=== PATIENT | male | born 1965 | race Caucasian/White ===

== ENCOUNTER 2017-05-04 03:13 | Inpatient (IN) | payer MEDICAID, OTHER ==
[2017-05-04] MEDS ORDERED: LORazepam 2 MG/ML MDV IVPUSH ONE (03:22)
[2017-05-04] MEDS ORDERED: Lactated Ringers 1,000 ML IV ONE (03:30)
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
[2017-05-04] MEDS ORDERED: OLANZapine 10 MG Vial IM ONE (05:54)
[2017-05-04] MEDS ORDERED: Pantoprazole 80 MG in Sodium Chloride 0.9% 100 ML IV ONE (05:56)
[2017-05-04] MEDS ORDERED: Pantoprazole 40 MG Vial ONE (06:09)
[2017-05-04] MEDS ORDERED: Sodium Chloride 0.9% 100 ML ONE (06:10)
[2017-05-04] MEDS ORDERED: Diphtheria,Pertussis(Acell),Tetanus Vaccine 0.5 ML SDV IM ONE (06:21)
[2017-05-04] MEDS ORDERED: Iopamidol 755 Mg/ML 100 ML Bottle IV ONE (07:21)
[2017-05-04] MEDS: Albuterol/Ipratropium 3.0-0.5 MG/3 ML Neb Soln NEB SCH ×4 (07:29→21:00)
[2017-05-04] MEDS: Sodium Chloride 0.9% 1,000 ML IV SCH ×3 (10:31→23:59)
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
[2017-05-05] MEDS: Ibuprofen 600 MG Tab PO PRN ×2 (05:33→16:23)
[2017-05-05] MEDS: Acetaminophen 500 MG Tab PO PRN ×2 (05:36→16:23)
[2017-05-05] MEDS: Sodium Chloride 0.9% 1,000 ML IV SCH ×3 (06:32→20:01)
[2017-05-05] MEDS: Albuterol/Ipratropium 3.0-0.5 MG/3 ML Neb Soln NEB SCH (09:22)
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
[2017-05-05] MEDS: Ketorolac 30 MG/ML SDV IVPUSH PRN (17:12)
[2017-05-06] MEDS: Sodium Chloride 0.9% 1,000 ML IV SCH ×2 (02:46→09:17)
[2017-05-06] MEDS: Ketorolac 30 MG/ML SDV IVPUSH PRN ×2 (02:48→10:33)
[2017-05-06] MEDS: Ibuprofen 600 MG Tab PO PRN (08:09)
[2017-05-06] MEDS: Acetaminophen 500 MG Tab PO PRN (08:10)
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
== END 2017-05-06 16:18 | disposition home or self-care (01) | DRG 914 ==
LOC: FB.ED 03:13 → FB.ICU 06:03 → FB.MS 05-05 11:17
PROVIDERS: ADMIT Emergency Medicine; ATTEND Family Medicine
DX: T14.90XA Injury, unspecified, initial encounter (principal); N17.9 Acute kidney failure, unspecified; V48.5XXA Car driver injured in noncollision transport accident in traffic accident, initial encounter; I95.9 Hypotension, unspecified; R00.0 Tachycardia, unspecified; F22 Delusional disorders; F12.10 Cannabis abuse, uncomplicated; F10.10 Alcohol abuse, uncomplicated; F11.10 Opioid abuse, uncomplicated; Y90.0 Blood alcohol level of less than 20 mg/100 ml; Z87.898 Personal history of other specified conditions; R10.9 Unspecified abdominal pain; M54.2 Cervicalgia; M54.9 Dorsalgia, unspecified; G89.29 Other chronic pain; Y92.410 Unspecified street and highway as the place of occurrence of the external cause
CPT/HCPCS: 36415; 70450; 71045; 71260; 72125; 72170; 74177; 80048; 80053; 80305; 81001; 85025; 85027; 86850; 86900; 86901; 90715; 94640; A9270-GY; C9113; G0480; J1885; J2060; J7030; J7040; J7120; J7620; S0166

== ENCOUNTER 2017-10-08 18:06 | Emergency (ER) | payer MEDICAID ==
[2017-10-08] MEDS ORDERED: Sodium Chloride 0.9% 10 ML Syringe FLUSH PRN (18:25)
[2017-10-08] MEDS ORDERED: Ondansetron 4 MG/2 ML SDV IVPUSH ONE (18:26)
[2017-10-08] MEDS ORDERED: HYDROmorphone 2 MG/ML SDV IVPUSH ONE (18:26)
[2017-10-08] MEDS ORDERED: Pantoprazole 40 MG Vial IVPUSH ONE (18:27)
[2017-10-08] MEDS ORDERED: Sodium Chloride 0.9% 1,000 ML IV SCH (18:30)
--- NOTE | 2017-10-08 18:33 | EDM.PDOC ---
ED HPI GENERAL MEDICAL PROBLEM - General Chief Complaint: Chest Pain Stated Complaint: SHORT OF BREATH Time Seen by Provider: 10/08/17 18:28 Source of Information: Reports: Patient History Limitations: Reports: No Limitations - History of Present Illness INITIAL COMMENTS - FREE TEXT/NARRATIVE: Developed left sided chest pain radiating to left arm 1 hour ago associated with tingling to left hand (these symptoms have resolved). No prior h/o CAD. Also complains of worsening low abdominal pain w/ N/V/D x 2 months. Was recently diagnosed with Hep C. Onset: Sudden Duration: Hour(s): (1) Location: Reports: Chest Quality: Reports: Dull Severity: Moderate Associated Symptoms: Reports: Shortness of Breath Treatments [employer]: Reports: Aspirin lower abdomen radiating to back and neto lower legs Pain Score (Numeric/FACES): 10 - Related Data Allergies Allergy/AdvReac Type Severity Reaction Status Date / Time No Known Allergies Allergy Verified 10/08/17 19:42 Home Meds: Home Meds Aspirin [Ecotrin] 325 mg PO DAILY 05/04/17 [History] Pantoprazole Sodium [Protonix] 40 mg PO DAILY #15 tab 10/08/17 [Rx] Past Medical History Cardiovascular History: Denies: CAD Gastrointestinal History: Reports: Hepatitis (c) Musculoskeletal History: Reports: Back Pain, Chronic, Osteoarthritis Other Psychiatric History: had been to alcohol rehab several times - Past Surgical History Other HEENT Surgeries/Procedures: unknown at this time Other Cardiovascular Surgeries/Procedures: unknown at this time Other Respiratory Surgeries/Procedures: much wheezing and diminished air audible throughout lungs Other GI Surgeries/Procedures: aubleible bowel activity Other Male Surgeries/Procedures: no void at this time Social & Family History - Family History Family Medical History: Unobtainable - Tobacco Use Smoking Status *Q: Current Every Day Smoker Tobacco Use Within Last Twelve Months: Cigarettes - Caffeine Use Caffeine Use: Reports: Coffee - Alcohol Use Alcohol Use History: Yes Alcohol Use Frequency: Socially - Recreational Drug Use Recreational Drug Use: No Drug Use in Last 12 Months: Yes Recreational Drug Type: Reports: Cocaine (3 months ago), Methamphetamine (3 months ago) ED ROS GENERAL - Review of Systems Review Of Systems: See Below Constitutional: Reports: No Symptoms HEENT: Reports: No Symptoms Respiratory: Reports: Shortness of Breath Cardiovascular: Reports: Chest Pain GI/Abdominal: Reports: Abdominal Pain, Diarrhea, Nausea, Vomiting : Reports: Other (urine color is green) Musculoskeletal: Reports: Back Pain Skin: Reports: No Symptoms Neurological: Reports: No Symptoms Psychiatric: Reports: No Symptoms Hematologic/Lymphatic: Reports: No Symptoms Immunologic: Reports: No Symptoms ED EXAM, GENERAL - Physical Exam Exam: See Below Exam Limited By: No Limitations General Appearance: Alert, WD/WN, No Apparent Distress Nose: Normal Inspection Throat/Mouth: Normal Inspection Head: Atraumatic, Normocephalic Neck: Normal Inspection, Supple Respiratory/Chest: No Respiratory Distress, Lungs Clear, Normal Breath Sounds, No Accessory Muscle Use Cardiovascular: Regular Rate, Rhythm, No Edema, No Gallop, No JVD, No Murmur, No Rub GI/Abdominal: Normal Bowel Sounds, Soft, No Distention, Tender (moderate lower) Back Exam: Full Range of Motion Extremities: Normal Inspection, Normal Range of Motion Neurological: Alert, Oriented, Normal Cognition, Normal Gait Psychiatric: Anxious Skin Exam: Warm, Dry, Intact EKG INTERPRETATION EKG Date: 10/08/17 Time: 18:11 Rhythm: NSR Rate (Beats/Min): 79 EKG Interpretation Comments: Early repolarization pattern ST elevation, otherwise normal Course - Vital Signs Last Recorded V/S: Last Vital Signs Temp 37.1 C 10/08/17 18:07 Pulse 86 10/08/17 18:07 Resp 15 10/08/17 18:07 BP 114/73 10/08/17 18:07 Pulse Ox 100 10/08/17 18:07 - Orders/Labs/Meds Orders: Active Orders 24 hr Category Date Time Status EKG Documentation Completion [RC] ASDIRECTED Care 10/08/17 18:24 Active Abdomen Pelvis w Cont [CT] Stat Exams 10/08/17 21:05 Taken Chest 2V [CR] Stat Exams 10/08/17 18:24 Taken CHLAMYDIA/GC AMPLIFICATION Routine Lab 10/08/17 21:10 Received DRUG SCREEN, URINE ALERE [URCHEM] Stat Lab 10/08/17 18:25 Ordered UA W/MICROSCOPIC [URIN] Stat Lab 10/08/17 21:11 Ordered Sodium Chloride 0.9% [Normal Saline] 1,000 ml Med 10/08/17 18:30 Active IV ASDIRECTED Sodium Chloride 0.9% [Saline Flush] Med 07/16/18 18:25 Active 10 ml FLUSH ASDIRECTED PRN Saline Lock Insert [OM.PC] Routine Oth 10/08/17 18:25 Ordered EKG 12 Lead [EK] Stat Ther 10/08/17 18:23 Ordered Medication Orders Sodium Chloride (Normal Saline) 1,000 mls @ 150 mls/hr IV ASDIRECTED AV Last Admin: 10/08/17 19:08 Dose: 150 mls/hr Sodium Chloride (Saline Flush) 10 ml FLUSH ASDIRECTED PRN PRN Reason: Keep Vein Open Last Admin: 10/08/17 19:08 Dose: 10 ml Labs: Laboratory Tests 10/08/17 10/08/17 10/08/17 Range/Units 18:25 18:30 18:30 WBC 9.4 (4.5-12.0) X10-3/uL RBC 5.03 (4.30-5.75) x10(6)uL Hgb 16.3 H (11.5-15.5) g/dL Hct 47.4 (30.0-51.3) % MCV 94.2 (80-96) fL MCH 32.3 (27.7-33.6) pg MCHC 34.3 (32.2-35.4) g/dL RDW 12.8 (11.5-15.5) % Plt Count 162 (125-369) X10(3)uL MPV 7.9 (7.4-10.4) fL Neut % (Auto) 71.1 (46-82) % Lymph % (Auto) 18.2 (13-37) % [place] % (Auto) 8.1 (4-12) % Eos % (Auto) 2 (1.0-5.0) % Baso % (Auto) 1 (0-2) % Neut # (Auto) 6.6 (1.6-8.3) # Lymph # (Auto) 1.7 (0.6-5.0) # [place] # (Auto) 0.8 (0.0-1.3) # Eos # (Auto) 0.2 (0.0-0.8) # Baso # (Auto) 0.1 (0.0-0.2) # PT 9.4 (8.7-11.1) INR 0.97 (0.89-1.13) Sodium (135-145) mmol/L Potassium (3.5-5.3) mmol/L Chloride (100-110) mmol/L Carbon Dioxide (21-32) mmol/L BUN (7-18) mg/dL Creatinine (0.70-1.30) mg/dL Est Cr Clr Drug Dosing Estimated GFR (MDRD) (>60) BUN/Creatinine Ratio (9-20) Glucose (80-116) mg/dL Calcium (8.6-10.2) mg/dL Total Bilirubin (0.1-1.3) mg/dL AST (5-25) IU/L ALT (12-36) U/L Alkaline Phosphatase (56-112) IU/L Troponin I (<0.017-0.056) ng/mL Total Protein (6.0-8.0) g/dL Albumin (3.5-5.2) g/dL Globulin g/dL Albumin/Globulin Ratio Amylase (25-115) U/L Urine Color (YELLOW) Urine Appearance (CLEAR) Urine pH (5.0-6.5) Ur Specific [place] (1.010-1.025) Urine Protein (NEGATIVE) mg/dL Urine Glucose (UA) (NEGATIVE) mg/dL Urine Ketones (NEGATIVE) mg/dL Urine Occult Blood (NEGATIVE) Urine Nitrite (NEGATIVE) Urine Bilirubin (NEGATIVE) Urine Urobilinogen (NEGATIVE) mg/dL Ur Leukocyte Esterase (NEGATIVE) Urine RBC (0) Urine WBC (0) Ur Squamous Epith Cells (NS,R,O) Urine Bacteria (NS) Urine Mucus (NS) Urine Opiates Screen Positive H (NEGATIVE) Ur Oxycodone Screen Negative (NEGATIVE) Ur Propoxyphene Screen Negative (NEGATIVE) Ur Barbituates Screen Negative (NEGATIVE) Ur Tricyclics Screen Negative (NEGATIVE) Ur Phencyclidine Scrn Negative (NEGATIVE) Ur Amphetamine Screen Positive H (NEGATIVE) Urine MDMA Screen Positive H (NEGATIVE) U Benzodiazepines Scrn Negative (NEGATIVE) U Cocaine Metab Screen Negative (NEGATIVE) U Marijuana (THC) Screen Positive H (NEGATIVE) Ethyl Alcohol (<0.03) % 10/08/17 10/08/17 10/08/17 Range/Units 18:30 18:30 18:30 WBC (4.5-12.0) X10-3/uL RBC (4.30-5.75) x10(6)uL Hgb (11.5-15.5) g/dL Hct (30.0-51.3) % MCV (80-96) fL MCH (27.7-33.6) pg MCHC (32.2-35.4) g/dL RDW (11.5-15.5) % Plt Count (125-369) X10(3)uL MPV (7.4-10.4) fL Neut % (Auto) (46-82) % Lymph % (Auto) (13-37) % [place] % (Auto) (4-12) % Eos % (Auto) (1.0-5.0) % Baso % (Auto) (0-2) % Neut # (Auto) (1.6-8.3) # Lymph # (Auto) (0.6-5.0) # [place] # (Auto) (0.0-1.3) # Eos # (Auto) (0.0-0.8) # Baso # (Auto) (0.0-0.2) # PT (8.7-11.1) INR (0.89-1.13) Sodium 136 (135-145) mmol/L Potassium 3.5 (3.5-5.3) mmol/L Chloride 101 D (100-110) mmol/L Carbon Dioxide 20 L (21-32) mmol/L BUN 11 (7-18) mg/dL Creatinine 1.0 (0.70-1.30) mg/dL Est Cr Clr Drug Dosing TNP Estimated GFR (MDRD) > 60 (>60) BUN/Creatinine Ratio 11.0 (9-20) Glucose 93 (80-116) mg/dL Calcium 9.1 (8.6-10.2) mg/dL Total Bilirubin 0.7 (0.1-1.3) mg/dL AST 39 H D (5-25) IU/L ALT 36 D (12-36) U/L Alkaline Phosphatase 69 (56-112) IU/L Troponin I < 0.017 L (<0.017-0.056) ng/mL Total Protein 8.5 H (6.0-8.0) g/dL Albumin 3.6 (3.5-5.2) g/dL Globulin 4.9 g/dL Albumin/Globulin Ratio 0.7 Amylase 36 (25-115) U/L Urine Color (YELLOW) Urine Appearance (CLEAR) Urine pH (5.0-6.5) Ur Specific [place] (1.010-1.025) Urine Protein (NEGATIVE) mg/dL Urine Glucose (UA) (NEGATIVE) mg/dL Urine Ketones (NEGATIVE) mg/dL Urine Occult Blood (NEGATIVE) Urine Nitrite (NEGATIVE) Urine Bilirubin (NEGATIVE) Urine Urobilinogen (NEGATIVE) mg/dL Ur Leukocyte Esterase (NEGATIVE) Urine RBC (0) Urine WBC (0) Ur Squamous Epith Cells (NS,R,O) Urine Bacteria (NS) Urine Mucus (NS) Urine Opiates Screen (NEGATIVE) Ur Oxycodone Screen (NEGATIVE) Ur Propoxyphene Screen (NEGATIVE) Ur Barbituates Screen (NEGATIVE) Ur Tricyclics Screen (NEGATIVE) Ur Phencyclidine Scrn (NEGATIVE) Ur Amphetamine Screen (NEGATIVE) Urine MDMA Screen (NEGATIVE) U Benzodiazepines Scrn (NEGATIVE) U Cocaine Metab Screen (NEGATIVE) U Marijuana (THC) Screen (NEGATIVE) Ethyl Alcohol (<0.03) % 10/08/17 10/08/17 10/08/17 Range/Units 18:30 21:11 21:30 WBC (4.5-12.0) X10-3/uL RBC (4.30-5.75) x10(6)uL Hgb (11.5-15.5) g/dL Hct (30.0-51.3) % MCV (80-96) fL MCH (27.7-33.6) pg MCHC (32.2-35.4) g/dL RDW (11.5-15.5) % Plt Count (125-369) X10(3)uL MPV (7.4-10.4) fL Neut % (Auto) (46-82) % Lymph % (Auto) (13-37) % [place] % (Auto) (4-12) % Eos % (Auto) (1.0-5.0) % Baso % (Auto) (0-2) % Neut # (Auto) (1.6-8.3) # Lymph # (Auto) (0.6-5.0) # [place] # (Auto) (0.0-1.3) # Eos # (Auto) (0.0-0.8) # Baso # (Auto) (0.0-0.2) # PT (8.7-11.1) INR (0.89-1.13) Sodium (135-145) mmol/L Potassium (3.5-5.3) mmol/L Chloride (100-110) mmol/L Carbon Dioxide (21-32) mmol/L BUN (7-18) mg/dL Creatinine (0.70-1.30) mg/dL Est Cr Clr Drug Dosing Estimated GFR (MDRD) (>60) BUN/Creatinine Ratio (9-20) Glucose (80-116) mg/dL Calcium (8.6-10.2) mg/dL Total Bilirubin (0.1-1.3) mg/dL AST (5-25) IU/L ALT (12-36) U/L Alkaline Phosphatase (56-112) IU/L Troponin I < 0.017 L (<0.017-0.056) ng/mL Total Protein (6.0-8.0) g/dL Albumin (3.5-5.2) g/dL Globulin g/dL Albumin/Globulin Ratio Amylase (25-115) U/L Urine Color [place] (YELLOW) Urine Appearance Clear (CLEAR) Urine pH 5.0 (5.0-6.5) Ur Specific [place] 1.025 (1.010-1.025) Urine Protein Negative (NEGATIVE) mg/dL Urine Glucose (UA) Normal (NEGATIVE) mg/dL Urine Ketones Negative (NEGATIVE) mg/dL Urine Occult Blood Negative (NEGATIVE) Urine Nitrite Negative (NEGATIVE) Urine Bilirubin Small H (NEGATIVE) Urine Urobilinogen 1 H (NEGATIVE) mg/dL Ur Leukocyte Esterase Negative (NEGATIVE) Urine RBC Not seen (0) Urine WBC 0-5 (0) Ur Squamous Epith Cells Moderate H (NS,R,O) Urine Bacteria Few H (NS) Urine Mucus Few H (NS) Urine Opiates Screen (NEGATIVE) Ur Oxycodone Screen (NEGATIVE) Ur Propoxyphene Screen (NEGATIVE) Ur Barbituates Screen (NEGATIVE) Ur Tricyclics Screen (NEGATIVE) Ur Phencyclidine Scrn (NEGATIVE) Ur Amphetamine Screen (NEGATIVE) Urine MDMA Screen (NEGATIVE) U Benzodiazepines Scrn (NEGATIVE) U Cocaine Metab Screen (NEGATIVE) U Marijuana (THC) Screen (NEGATIVE) Ethyl Alcohol 0.05 H (<0.03) % Meds: Medications Generic Name Dose Route Start Last Admin Trade Name Freq PRN Reason Stop Dose Admin Sodium Chloride 1,000 mls @ 150 mls/hr 10/08/17 18:30 10/08/17 19:08 Normal Saline IV 150 mls/hr ASDIRECTED AV Administration Sodium Chloride 10 ml 10/08/17 18:25 10/08/17 19:08 Saline Flush FLUSH 10 ml ASDIRECTED PRN Administration Keep Vein Open Discontinued Medications Generic Name Dose Route Start Last Admin Trade Name Freq PRN Reason Stop Dose Admin Hydromorphone HCl 1 mg 10/08/17 18:26 10/08/17 19:10 Dilaudid IVPUSH 10/08/17 18:27 1 mg ONETIME ONE Administration Iopamidol 100 ml 10/08/17 20:57 10/08/17 21:01 Isovue-370 (76%) IV 10/08/17 20:58 83 ml ONETIME ONE Administration Ondansetron HCl 4 mg 10/08/17 18:26 10/08/17 19:12 Zofran IVPUSH 10/08/17 18:27 4 mg ONETIME ONE Administration Pantoprazole Sodium 40 mg 10/08/17 18:27 10/08/17 19:13 Protonix Iv IVPUSH 10/08/17 18:28 40 mg ONETIME ONE Administration - Radiology Interpretation Free Text/Narrative:: CT Abd/Pelvis w/ contrast: prominence of the antrum of stomach, otherwise NAD ( per Dr. Tobias). CXR: NAD - Re-Assessments/Exams Free Text/Narrative Re-Assessment/Exam: 10/08/17 22:23 Symptoms improved. Departure - Departure Time of Disposition: 22:23 Disposition: Home, Self-Care 01 Condition: Good Clinical Impression: Atypical chest pain, Abdominal pain Prescriptions: Pantoprazole Sodium [Protonix] 40 mg PO DAILY #15 tab Instructions: Nonspecific Chest Pain, Abdominal Pain, Adult, [id number] Referrals: PCP,None [Primary Care Provider] - Forms: ED Department Discharge - My Orders Last 24 Hours: My Active Orders 10/08/17 18:23 EKG 12 Lead [EK] Stat 10/08/17 18:24 EKG Documentation Completion [RC] ASDIRECTED Chest 2V [CR] Stat 10/08/17 18:25 DRUG SCREEN, URINE ALERE [URCHEM] Stat Sodium Chloride 0.9% [Saline Flush] 10 ml FLUSH ASDIRECTED PRN Saline Lock Insert [OM.PC] Routine 10/08/17 18:30 Sodium Chloride 0.9% [Normal Saline] 1,000 ml IV ASDIRECTED 10/08/17 21:05 Abdomen Pelvis w Cont [CT] Stat 10/08/17 21:10 CHLAMYDIA/GC AMPLIFICATION Routine 10/08/17 21:11 UA W/MICROSCOPIC [URIN] Stat - Assessment/Plan Last 24 Hours: My Active Orders 10/08/17 18:23 EKG 12 Lead [EK] Stat 10/08/17 18:24 EKG Documentation Completion [RC] ASDIRECTED Chest 2V [CR] Stat 10/08/17 18:25 DRUG SCREEN, URINE ALERE [URCHEM] Stat Sodium Chloride 0.9% [Saline Flush] 10 ml FLUSH ASDIRECTED PRN Saline Lock Insert [OM.PC] Routine 10/08/17 18:30 Sodium Chloride 0.9% [Normal Saline] 1,000 ml IV ASDIRECTED 10/08/17 21:05 Abdomen Pelvis w Cont [CT] Stat 10/08/17 21:10 CHLAMYDIA/GC AMPLIFICATION Routine 10/08/17 21:11 UA W/MICROSCOPIC [URIN] Stat
[2017-10-08] MEDS ORDERED: Iopamidol 755 Mg/ML 100 ML Bottle IV ONE (20:57)
--- NOTE | 2017-10-09 10:50 | CT ---
INDICATION: Right and left pelvic pain, bilateral flank pain times two months. CT ABDOMEN AND PELVIS WITH CONTRAST: Spiral 2.5 mm axial sections were obtained through the abdomen and pelvis with oral and IV contrast (83 mL Isovue 370 at 2 mL/second with 100 second delay), with sagittal and coronal reconstructions, 10/08/2017, and compared with 05/04/2017. Total exam DLP = 827.22 mGy-cm. Lower lung glass and pleural spaces visualized appeared normal. Multiple calcified granulomas are noted in the lung bases. The heart is normal in size. No pericardial effusion was seen. The stomach appeared to be fairly normal, except in the area of the gastric antrum, where there is some prominence of the wall thickness, raising question of early or mild PUD - correlate clinically. No gallstones were demonstrated. The liver, spleen, pancreas, common bile duct, adrenals, and for the most part kidneys appeared normal. There is some faintly visualized tiny low density areas of questionable significance in the left kidney. No obstructive uropathy was seen. Retroperitoneal lymphadenopathy is noted to a mild degree and is nonspecific. No retroperitoneal mass was seen. Calcifications are noted in the abdominal aorta, iliac and femoral arteries. What appears to be the appendix is most likely normal. It measured a maximum of 7.4 mm in one area but showed no evidence of inflammation. It was visualized on axial images #131 through #146. No evidence of free air or bowel obstruction was seen. The urinary bladder was unremarkable. What appears to be the prostate is again noted to have a cystic appearing change in its posterior right-sided portion, possibly on the basis of a biopsy site. This should be correlated clinically. No hernia was seen. No organomegaly, mass lesions, or free fluid collections were identified in the abdomen or pelvis. IMPRESSION: 1. Mild ASD. 2. Possible biopsy site in the right posterior prostate. 3. No specific etiology identified to suggest a cause for the patients pain. 4. Slight thickening of the wall of the gastric antrum, which could be on the basis of early or mild PUD but should be correlated clinically. Report was called to Dr. Herron at 2133 hours on 10/08/2017. [facility]
--- NOTE | 2017-10-09 11:04 | CR ---
INDICATION: Chest pain. CHEST: Two PA views and a lateral view of the chest, 10/08/2017, were compared with 05/04/2017, again revealing the heart to be normal in size and shape. Mediastinum was unremarkable. Degenerative changes are noted in the lower thoracic spine. Multiple healed rib fractures are noted on the left posteriorly, present previously. Overlying snaps are noted. Overlying artifacts are seen. An active infiltrate or effusion is not strongly suggested, although there may be some minimal pleural fluid versus pleural fibrosis at the left costophrenic angle, which is somewhat blunted. A few probable granulomas are scattered about the lungs. IMPRESSION: No definite acute process but difficult to exclude a minimal pleural effusion at the left costophrenic angle. MTDD
[2017-10-11 10:28] LABS: CHLAMYDIA TRACHOMATIS, NAA Negative (Negative); NEISSERIA GONORRHOEAE, NAA Negative (Negative)
== END 2017-10-08 22:40 | disposition home or self-care (01) ==
LOC: FB.ED 18:06
DX: R07.89 Other chest pain (principal); R10.30 Lower abdominal pain, unspecified; F17.210 Nicotine dependence, cigarettes, uncomplicated; Z79.82 Long term (current) use of aspirin
CPT/HCPCS: 36415; 71046; 74177; 80053; 80305; 81001; 82150; 84484; 85025; 85610; 87491; 87591; 93005; 96361; 96374; 96375; 99285; C9113; G0480; J1170; J2405; J7030; J7050; Q9967